=== PATIENT | female | born 1950 | race Caucasian/White ===

== ENCOUNTER 2018-03-16 08:09 | Inpatient (IN) | payer MEDICARE, BC ==
[2018-03-09 14:30] LABS: BASOPHILS # (AUTO) 0.1 X10'3 (0-0.2); BASOPHILS % (AUTO) 0.5 % (0-1); EOSINOPHILS # (AUTO) 0.2 X10'3 (0-0.9); EOSINOPHILS % (AUTO) 1.5 % (0-6); LYMPHOCYTES # (AUTO) 2.1 X10'3 (1.1-4.8); LYMPHOCYTES % (AUTO) 19.3 % (21-51); MEAN CORPUSCULAR HEMOGLOBIN 30.1 PG (27.0-31.0); MEAN CORPUSCULAR HGB CONC 33.7 % (33.0-36.5); MEAN CORPUSCULAR VOLUME 89.3 FL (78-98); MEAN PLATELET VOLUME 9.2 FL (7.4-10.4); MONOCYTES # (AUTO) 0.7 X10'3 (0-0.9); MONOCYTES % (AUTO) 6.9 % (2-12); NEUTROPHILS # (AUTO) 7.7 X10'3 (1.8-7.7); NEUTROPHILS % (AUTO) 71.8 % (42-75); PRE OP HEMATOCRIT 42.3 % (35.0-45.0); PRE OP HEMOGLOBIN 14.2 g/dL (12.0-16.0); PRE OP PLATELET COUNT 210 X10'3 (140-440); RED BLOOD COUNT 4.73 X10'6 (4.20-5.60); RED CELL DISTRIBUTION WIDTH 12.5 % (11.5-14.5)
[2018-03-09 14:41] LABS: ALBUMIN 3.7 G/DL (3.4-5.0); ALKALINE PHOSPHATASE 143 IU/L (46-116); BLOOD UREA NITROGEN 22 MG/DL (7-18); BUN/CREATININE RATIO 26.8 (6.6-38.0); CALCIUM 9.3 MG/DL (8.5-10.1); CHLORIDE 105 MMOL/L (99-107); CREATININE 0.82 MG/DL (0.40-0.90); PRE OP ALT 36 U/L (30-65); PRE OP ANION GAP 9 (8-16); PRE OP AST 19 U/L (10-37); PRE OP BILIRUB, TOTAL 0.2 MG/DL (0.0-1.0); PRE OP GLUCOSE 85 MG/DL (70-104); PRE OP SODIUM 142 MMOL/L (135-145); TOTAL CARBON DIOXIDE 27.6 MMOL/L (24-32); TOTAL PROTEIN 7.5 G/DL (6.4-8.2); eGFR 70 ML/MIN
[2018-03-09 14:58] LABS: CLARITY,URINE SLIGHTLY CLOUDY (Clear); COLOR,URINE YELLOW (Yellow); GLUCOSE, URINE NEGATIVE (Neg); KETONES,URINE NEGATIVE (Neg); LEUKOCYTE ESTERASE ,URINE NEGATIVE (Neg); NITRITES, URINE NEGATIVE (Neg); OCCULT BLOOD,URINE TRACE-LYSED (Neg); PROTEIN,URINE NEGATIVE (Neg); UROBILINOGEN,URINE 0.2 E.U/dL (0.2-1.0)
[2018-03-09 15:03] LABS: UA COLLECTION TYPE CLN CATCH MIDSTREAM
[2018-03-09 15:13] LABS: MUCUS STRANDS MODERATE /LPF (Neg); SQUAMOUS EPITHELIAL CELL,UR MODERATE /LPF (FEW)
[2018-03-09 15:14] LABS: BACTERIA,URINE FEW /HPF (Neg); RBC,URINE 0-2 /HPF (0-2); WBC,URINE NONE SEEN /HPF (0-4)
[2018-03-16] VITALS (15 sets, daily range): BP systolic 114–174; BP diastolic 57–96
[~2018-03-16] VITALS: Ht 167.6 cm; Wt 94.0 kg
[2018-03-16] MEDS: potassium cl 20mEq in 1/2 NS 1,000 ML IV SCH ×3 (07:20→23:20)
[2018-03-16] MEDS: multivitamins, therapeutics tablet PO SCH (08:00)
[2018-03-16] MEDS: buPROPion SR 150mg tablet PO SCH ×2 (08:00→20:19)
[2018-03-16] MEDS: ascorbic acid 500mg tablet PO SCH ×2 (08:00→20:19)
[~2018-03-16 08:09] MED LIST: ATOR-2 PO; BUPR-84 PO; CHOL50004 PO; CYAN-19 PO; GABA-530 PO; HYDROmorphone 1 mg/ml syringe IV PRN; LORA0.5T PO; LORazepam 0.5 MG tablet PO PRN; MELO-102 PO; POTA99TA21 PO; STRESS TABS PO; TRAM50TA2 PO; VANCOMYCIN INJ 1000 MG in NORMAL SALINE 250ml IV.SOLN IV ONE; acetaminophen 325mg tablet PO ONE; acetaminophen 325mg tablet PO PRN; bisacodyl 10mg suppository rectal RC PRN; ceFAZolin 1GM/D5W- ADD-VANTAGE 50 ML IV SCH; cefazolin/dext.iso 2gm/100 ML IV ONE; celeCOXIB 100mg capsule PO ONE; diphenhydrAMINE 25mg capsule PO PRN; famotidine 20mg tablet PO ONE; gabapentin 300mg capsule PO ONE; magnesium hydroxide 30ml (MOM) UD suspension PO PRN; metoclopramide 5 mg/ml inj IV ONE; non-formulary drug (Atorvastatin Calcium 1 TAB) PO SCH; oxyCODONE SR 10mg (sust. release) tab -2 tabs (20mg) PO ONE; ringers solution, lacted 1,000 ML IV SCH; tranexamic acid inj. 1,000 MG in normal saline 100ml IV soln 90 ML IV ONE; vancomycin/NS 1 GM ADD-VANTAGE 250 ML IV SCH
[2018-03-16] MEDS: aspirin 325mg tablet PO SCH (08:30)
[2018-03-16] MEDS ORDERED: ROPIVAcaine inj 250 MG, epiNEPHrine inj 0.5 MG, CloNIDine/PF inj 80 MCG in normal salin... SQ ONE (09:05)
[2018-03-16] MEDS ORDERED: vancomycin 1,000mg inj ONE (09:06)
[2018-03-16] MEDS ORDERED: ketorolac trometh. 30mg/ml inj. ONE (09:06)
[2018-03-16] MEDS ORDERED: tetracaine 1% (10mg/ml) pres. free inj. ONE (10:31)
[2018-03-16] MEDS ORDERED: morphine /PF 1mg/ml 10ml inj. ONE (10:34)
[2018-03-16] MEDS ORDERED: fentaNYL/PF 50MCG/1 ML 2ML syringe ONE (10:34)
[2018-03-16] MEDS ORDERED: MIDAZolam 5mg/5ml vial ONE (10:34)
[2018-03-16] MEDS ORDERED: diphenhydrAMINE 50 mg/ml inj ONE (11:08)
[2018-03-16] MEDS ORDERED: LIDOcaine 1%/PF 5ML 10 MG/ML VIAL ONE (11:08)
[2018-03-16] MEDS ORDERED: propofol inj 20 ML IV ONE (11:08)
[2018-03-16] MEDS ORDERED: labetalol 5mg/ml 20ml inj. IV ONE (11:40)
[2018-03-16] MEDS ORDERED: ringers solution, lacted 1,000 ML IV SCH (11:45)
[2018-03-16] MEDS ORDERED: meperidine/PF 25mg/ml syringe IV PRN ×3 (11:45)
[2018-03-16] MEDS ORDERED: naloxone 2mg/2ml inj 2 MG in normal saline 500ml IV soln 500 ML IV PRN (11:45)
[2018-03-16] MEDS ORDERED: proCHLORperazine 10 MG/2 ml inj IV PRN (11:45)
[2018-03-16] MEDS ORDERED: ondansetron/PF 4mg/2ml inj IV PRN ×2 (11:45)
[2018-03-16] MEDS ORDERED: diphenhydrAMINE 50 mg/ml inj IV PRN (11:45)
[2018-03-16] MEDS ORDERED: morphine 4 MG/ML inj SYRINge IV PRN ×2 (11:45)
[2018-03-16] MEDS ORDERED: hydrALAZINE 20mg/ml inj. IV ONE (12:14)
[2018-03-16] MEDS: HYDROcodone/acetaminophen 10/325mg tab PO PRN (15:53)
[2018-03-16] MEDS: ceFAZolin 1GM/D5W- ADD-VANTAGE 50 ML IV SCH ×2 (16:00→23:39)
[2018-03-16] MEDS ORDERED: tranexamic acid inj. 1,000 MG in normal saline 100ml IV soln 100 ML IV ONE (16:00)
[2018-03-16] MEDS: ondansetron/PF 4mg/2ml inj IV PRN (16:42)
[2018-03-16] MEDS ORDERED: vancomycin/NS 1 GM ADD-VANTAGE 250 ML IV SCH (20:00)
[2018-03-16] MEDS: sennosides 8.6mg tablet PO SCH (20:20)
[2018-03-16] MEDS: gabapentin 100mg capsule PO SCH (20:20)
[2018-03-17 02:00] VITALS: BP 148/78
[2018-03-17] MEDS ORDERED: aspirin 325mg tablet, delayed-release (Ecotrin) PO ONE (05:10)
[2018-03-17] MEDS: potassium cl 20mEq in 1/2 NS 1,000 ML IV SCH ×3 (05:21→23:20)
[2018-03-17] MEDS: HYDROcodone/acetaminophen 10/325mg tab PO PRN ×5 (05:25→22:10)
[2018-03-17 06:00] VITALS: BP 156/87
[2018-03-17] MEDS: ascorbic acid 500mg tablet PO SCH ×2 (07:53→20:01)
[2018-03-17] MEDS: multivitamins, therapeutics tablet PO SCH (07:53)
[2018-03-17] MEDS: atorvastatin 20mg tablet PO SCH (07:53)
[2018-03-17] MEDS: buPROPion SR 150mg tablet PO SCH ×2 (07:53→20:01)
[2018-03-17] MEDS: aspirin 325mg tablet PO SCH (07:54)
[2018-03-17] MEDS ORDERED: POTASSIUM GLUCONATE 99 MG PO SCH (08:00)
[2018-03-17 08:27] LABS: BASOPHILS % (AUTO) 0 % (0-1); EOSINOPHILS # (AUTO) 0.1 X10'3 (0-0.9); EOSINOPHILS % (AUTO) 1.5 % (0-6); HEMATOCRIT 37.6 % (35.0-45.0); HEMOGLOBIN 12.5 g/dl (12.0-16.0); LYMPHOCYTES # (AUTO) 0.8 X10'3 (1.1-4.8); MEAN CORPUSCULAR HEMOGLOBIN 29.6 PG (27.0-31.0); MEAN CORPUSCULAR HGB CONC 33.4 % (33.0-36.5); MEAN CORPUSCULAR VOLUME 88.5 FL (78-98); MEAN PLATELET VOLUME 9.2 FL (7.4-10.4); MONOCYTES % (AUTO) 10.9 % (2-12); NEUTROPHILS # (AUTO) 7.6 X10'3 (1.8-7.7); NEUTROPHILS % (AUTO) 79.6 % (42-75); PLATELET COUNT 143 X10'3 (140-440); RED BLOOD COUNT 4.24 X10'6 (4.20-5.60); WHITE BLOOD COUNT 9.5 X10'3 (4.5-11.0)
[2018-03-17 09:16] LABS: ANION GAP 11 (8-16); CHLORIDE 105 MMOL/L (99-107); POTASSIUM 3.9 MMOL/L (3.5-5.1); SODIUM 139 MMOL/L (135-145); TOTAL CARBON DIOXIDE 23.5 MMOL/L (24-32)
[2018-03-17 11:00] VITALS: BP 156/87
[2018-03-17 14:00] VITALS: BP 157/92
[2018-03-17 18:00] VITALS: BP 162/97
[2018-03-17] MEDS: gabapentin 100mg capsule PO SCH (20:01)
[2018-03-17] MEDS: sennosides 8.6mg tablet PO SCH (20:01)
[2018-03-17 22:00] VITALS: BP 139/73
[2018-03-18] MEDS: HYDROcodone/acetaminophen 10/325mg tab PO PRN ×4 (01:41→23:57)
[2018-03-18] MEDS: ondansetron/PF 4mg/2ml inj IV PRN (05:32)
[2018-03-18 06:00] VITALS: BP 148/94
[2018-03-18 06:21] LABS: BASOPHILS % (AUTO) 0.3 % (0-1); EOSINOPHILS # (AUTO) 0.1 X10'3 (0-0.9); EOSINOPHILS % (AUTO) 1.1 % (0-6); HEMATOCRIT 38.8 % (35.0-45.0); HEMOGLOBIN 12.9 g/dl (12.0-16.0); LYMPHOCYTES # (AUTO) 1.1 X10'3 (1.1-4.8); LYMPHOCYTES % (AUTO) 9.8 % (21-51); MEAN CORPUSCULAR HEMOGLOBIN 29.8 PG (27.0-31.0); MEAN CORPUSCULAR HGB CONC 33.4 % (33.0-36.5); MEAN CORPUSCULAR VOLUME 89.2 FL (78-98); MEAN PLATELET VOLUME 8.8 FL (7.4-10.4); MONOCYTES # (AUTO) 1.4 X10'3 (0-0.9); MONOCYTES % (AUTO) 12.4 % (2-12); NEUTROPHILS # (AUTO) 8.7 X10'3 (1.8-7.7); NEUTROPHILS % (AUTO) 76.4 % (42-75); PLATELET COUNT 183 X10'3 (140-440); RED BLOOD COUNT 4.35 X10'6 (4.20-5.60); RED CELL DISTRIBUTION WIDTH 13.7 % (11.5-14.5); WHITE BLOOD COUNT 11.4 X10'3 (4.5-11.0)
[2018-03-18] MEDS: aspirin 325mg tablet PO SCH (07:31)
[2018-03-18] MEDS: ascorbic acid 500mg tablet PO SCH ×2 (07:31→20:09)
[2018-03-18] MEDS: multivitamins, therapeutics tablet PO SCH (07:31)
[2018-03-18] MEDS: atorvastatin 20mg tablet PO SCH (07:31)
[2018-03-18] MEDS: buPROPion SR 150mg tablet PO SCH ×2 (07:31→20:09)
[2018-03-18 10:00] VITALS: BP 161/94
[2018-03-18 14:00] VITALS: BP 158/84
[2018-03-18 18:00] VITALS: BP 138/90
[2018-03-18] MEDS: sennosides 8.6mg tablet PO SCH (20:09)
[2018-03-18] MEDS: gabapentin 100mg capsule PO SCH (20:09)
[2018-03-18 22:00] VITALS: BP 130/87
[2018-03-19] MEDS: HYDROcodone/acetaminophen 10/325mg tab PO PRN ×2 (04:46→16:03)
[2018-03-19 06:00] VITALS: BP 163/82
[2018-03-19 06:54] LABS: BASOPHILS % (AUTO) 0.2 % (0-1); EOSINOPHILS # (AUTO) 0.1 X10'3 (0-0.9); EOSINOPHILS % (AUTO) 1.5 % (0-6); HEMATOCRIT 37.4 % (35.0-45.0); HEMOGLOBIN 12.5 g/dl (12.0-16.0); MEAN CORPUSCULAR HEMOGLOBIN 29.5 PG (27.0-31.0); MEAN CORPUSCULAR HGB CONC 33.4 % (33.0-36.5); MEAN CORPUSCULAR VOLUME 88.3 FL (78-98); MEAN PLATELET VOLUME 8.3 FL (7.4-10.4); MONOCYTES # (AUTO) 1.1 X10'3 (0-0.9); MONOCYTES % (AUTO) 11.1 % (2-12); NEUTROPHILS # (AUTO) 7.6 X10'3 (1.8-7.7); NEUTROPHILS % (AUTO) 77.2 % (42-75); PLATELET COUNT 183 X10'3 (140-440); RED BLOOD COUNT 4.23 X10'6 (4.20-5.60); RED CELL DISTRIBUTION WIDTH 13.8 % (11.5-14.5); WHITE BLOOD COUNT 9.8 X10'3 (4.5-11.0)
[2018-03-19] MEDS: buPROPion SR 150mg tablet PO SCH (07:58)
[2018-03-19] MEDS: atorvastatin 20mg tablet PO SCH (07:58)
[2018-03-19] MEDS: ascorbic acid 500mg tablet PO SCH (07:58)
[2018-03-19] MEDS: multivitamins, therapeutics tablet PO SCH (07:58)
[2018-03-19] MEDS: aspirin 325mg tablet PO SCH (07:58)
[2018-03-19 10:00] VITALS: BP 145/89
== END 2018-03-19 16:34 | DRG 470 ==
LOC: PAS IN 08:09 → EDSTATUS 12:15 → ORTHO 4S 13:25
PROVIDERS: ADMIT Orthopaedic Surgery; ATTEND Orthopaedic Surgery
PROC: 0SR906Z Replacement of Right Hip Joint with Oxidized Zirconium on Polyethylene Synthetic Substitute, Open Approach (ICD-10-PCS; principal; 2018-03-16 10:31)
DX: M16.11 Unilateral primary osteoarthritis, right hip (principal); E78.5 Hyperlipidemia, unspecified; M81.0 Age-related osteoporosis without current pathological fracture; F32.9 Major depressive disorder, single episode, unspecified; F41.9 Anxiety disorder, unspecified; Z90.710 Acquired absence of both cervix and uterus; Z79.82 Long term (current) use of aspirin; Z79.899 Other long term (current) drug therapy; Z87.891 Personal history of nicotine dependence
CPT/HCPCS: 36415; 71046; 72170; 80051; 80053; 81001; 85025; 85610; 85730; 86885; 86900; 86901; 87070; 97110; 97116; 97162; 97530; A4615; A7000; C1758; C1776; G0378; J0171; J0360; J0690; J0735; J1200; J1885; J2001; J2250; J2274; J2310; J2405; J2704; J2765; J2795; J3010; J3370; J3490; J7030; J7120